=== PATIENT | female | born 1935 | race Caucasian/White ===

== ENCOUNTER 2021-07-07 15:11 | Inpatient (IN) ==
[2021-07-08] MEDS ORDERED: *HR* OxyCODONE Immed Rel 5 MG TABLET PO PRN ×2 (20:14→21:27)
[2021-07-08] MEDS ORDERED: Naloxone 0.4 MG/ML INJ IVP PRN (20:21)
[2021-07-08] MEDS ORDERED: Ondansetron 4 MG/2 ML VIAL IVP PRN (20:27)
[2021-07-08] MEDS: traZODone 50 MG TABLET PO SCH (22:00)
[2021-07-08] MEDS: methocarbamoL 500 MG TABLET PO SCH (22:00)
[2021-07-08] MEDS: Aspirin Enteric Coated 81 MG Tablet PO SCH (22:01)
[2021-07-09] MEDS: *HR* OxyCODONE Immed Rel 5 MG TABLET PO PRN ×3 (00:40→23:17)
[2021-07-09] MEDS: Ipratropium/Albuterol Neb 3 ML IH SCH ×4 (01:08→21:50)
[2021-07-09] MEDS: Budesonide/Formoterol 160/4.5 1 PUFF INH IH SCH ×3 (01:10→21:50)
[2021-07-09 06:05] LABS: Basophils % 0.5 %; Eosinophils # 0.3 K/mcL (0.0-0.6); Eosinophils % 4.5 %; Hematocrit 23.6 % (35.3-44.9); Hemoglobin 7.5 g/dL (11.5-15.4); Immature Granulocytes % 1.6 % (0-4); Lymphocytes # 1.7 K/mcL (0.6-4.6); Lymphocytes % 23.1 %; Mean Corpuscular HGB Conc 31.8 g/dL (31.6-35.5); Mean Corpuscular Hemoglobin 29.5 pg (28.0-33.3); Mean Corpuscular Volume 92.9 fL (83.0-100.0); Mean Platelet Volume 9.6 fL (9.4-12.4); Monocytes # 0.8 K/mcL (0.0-1.3); Monocytes % 10.5 %; Neutrophils # 4.4 K/mcL (1.6-8.9); Nucleated Red Blood Cells 0.7 /100 WBC (0); Platelet Count 317 K/mcL (140-400); Red Blood Count 2.54 M/mcL (3.82-4.97); Segmented Neutrophils % 59.8 %; White Blood Count 7.4 K/mcL (4.3-11.1)
[2021-07-09 06:16] LABS: BUN/Creatinine Ratio 19 (6-26); Blood Urea Nitrogen 16 mg/dL (8-23); Calcium 8.6 mg/dL (8.6-10.3); Carbon Dioxide 24 mEq/L (23-29); Chloride 106 mEq/L (98-107); Glucose 102 mg/dL (70-105); Osmolality,Calculated 281 (280-300); Potassium 3.9 mEq/L (3.5-5.1); Sodium 135 mEq/L (136-145); eGFR For African Americans > 60 (> 60); eGFR For Non-African Americans > 60 (> 60)
[2021-07-09] MEDS: amLODIPine 5 MG TABLET PO SCH (08:58)
[2021-07-09] MEDS: Aspirin Enteric Coated 81 MG Tablet PO SCH ×2 (08:58→20:31)
[2021-07-09] MEDS: Ascorbic Acid 500 MG TABLET PO SCH ×2 (08:58→16:18)
[2021-07-09] MEDS: Folic Acid 1 MG TABLET PO SCH (08:58)
[2021-07-09] MEDS: Multivit/Ca/Min/Fe/FA 1 TAB TABLET PO SCH (08:58)
[2021-07-09] MEDS: methocarbamoL 500 MG TABLET PO SCH (20:30)
[2021-07-09] MEDS: traZODone 50 MG TABLET PO SCH (20:31)
[2021-07-10 04:47] LABS: Hematocrit 24.6 % (35.3-44.9); Hemoglobin 7.7 g/dL (11.5-15.4); Mean Corpuscular HGB Conc 31.3 g/dL (31.6-35.5); Mean Corpuscular Hemoglobin 29.6 pg (28.0-33.3); Mean Corpuscular Volume 94.6 fL (83.0-100.0); Mean Platelet Volume 9.3 fL (9.4-12.4); Platelet Count 336 K/mcL (140-400); Red Cell Distribution Width 17.3 % (11.5-14.5); White Blood Count 8.6 K/mcL (4.3-11.1)
[2021-07-10] MEDS: Aspirin Enteric Coated 81 MG Tablet PO SCH ×2 (08:48→21:36)
[2021-07-10] MEDS: amLODIPine 5 MG TABLET PO SCH (08:48)
[2021-07-10] MEDS: Folic Acid 1 MG TABLET PO SCH (08:48)
[2021-07-10] MEDS: Multivit/Ca/Min/Fe/FA 1 TAB TABLET PO SCH (08:49)
[2021-07-10] MEDS: Ascorbic Acid 500 MG TABLET PO SCH ×2 (08:49→17:04)
[2021-07-10] MEDS: Budesonide/Formoterol 160/4.5 1 PUFF INH IH SCH ×2 (10:52→21:04)
[2021-07-10] MEDS: Ipratropium/Albuterol Neb 3 ML IH SCH ×3 (10:53→21:04)
[2021-07-10] MEDS: polyethylene glycoL 3350 17 GM POWD.PACK PO SCH (11:41)
[2021-07-10] MEDS: methocarbamoL 500 MG TABLET PO SCH (21:37)
[2021-07-10] MEDS: traZODone 50 MG TABLET PO SCH (21:37)
[2021-07-11 05:31] LABS: Hematocrit 26.6 % (35.3-44.9); Mean Corpuscular HGB Conc 30.1 g/dL (31.6-35.5); Mean Corpuscular Hemoglobin 29.7 pg (28.0-33.3); Mean Corpuscular Volume 98.9 fL (83.0-100.0); Mean Platelet Volume 9.5 fL (9.4-12.4); Platelet Count 361 K/mcL (140-400); Red Blood Count 2.69 M/mcL (3.82-4.97); Red Cell Distribution Width 18.5 % (11.5-14.5); White Blood Count 9.1 K/mcL (4.3-11.1)
[2021-07-11 05:40] LABS: BUN/Creatinine Ratio 15 (6-26); Blood Urea Nitrogen 13 mg/dL (8-23); Calcium 8.5 mg/dL (8.6-10.3); Carbon Dioxide 25 mEq/L (23-29); Chloride 105 mEq/L (98-107); Glucose 130 mg/dL (70-105); Osmolality,Calculated 286 (280-300); Potassium 4.4 mEq/L (3.5-5.1); Sodium 137 mEq/L (136-145); eGFR For African Americans > 60 (> 60); eGFR For Non-African Americans > 60 (> 60)
[2021-07-11] MEDS: *HR* OxyCODONE Immed Rel 5 MG TABLET PO PRN ×3 (05:51→22:12)
[2021-07-11] MEDS: amLODIPine 5 MG TABLET PO SCH (08:36)
[2021-07-11] MEDS: Aspirin Enteric Coated 81 MG Tablet PO SCH ×2 (08:36→20:20)
[2021-07-11] MEDS: polyethylene glycoL 3350 17 GM POWD.PACK PO SCH (08:36)
[2021-07-11] MEDS: Folic Acid 1 MG TABLET PO SCH (08:36)
[2021-07-11] MEDS: Ascorbic Acid 500 MG TABLET PO SCH ×2 (08:36→16:25)
[2021-07-11] MEDS: Multivit/Ca/Min/Fe/FA 1 TAB TABLET PO SCH (08:36)
[2021-07-11] MEDS: Budesonide/Formoterol 160/4.5 1 PUFF INH IH SCH ×2 (10:28→21:45)
[2021-07-11] MEDS: Ipratropium/Albuterol Neb 3 ML IH SCH ×3 (10:33→21:45)
[2021-07-11] MEDS: traZODone 50 MG TABLET PO SCH (20:20)
[2021-07-11] MEDS: methocarbamoL 500 MG TABLET PO SCH (20:20)
[2021-07-12] MEDS: Folic Acid 1 MG TABLET PO SCH (08:00)
[2021-07-12] MEDS: Aspirin Enteric Coated 81 MG Tablet PO SCH ×2 (08:01→20:20)
[2021-07-12] MEDS: amLODIPine 5 MG TABLET PO SCH (08:01)
[2021-07-12] MEDS: Multivit/Ca/Min/Fe/FA 1 TAB TABLET PO SCH (08:01)
[2021-07-12] MEDS: *HR* OxyCODONE Immed Rel 5 MG TABLET PO PRN ×2 (08:01→13:40)
[2021-07-12] MEDS: Ascorbic Acid 500 MG TABLET PO SCH ×2 (08:01→16:42)
[2021-07-12] MEDS: polyethylene glycoL 3350 17 GM POWD.PACK PO SCH (08:05)
[2021-07-12] MEDS: Ipratropium/Albuterol Neb 3 ML IH SCH ×3 (10:26→20:09)
[2021-07-12] MEDS: Budesonide/Formoterol 160/4.5 1 PUFF INH IH SCH ×2 (10:30→20:09)
[2021-07-12] MEDS: traZODone 50 MG TABLET PO SCH (20:20)
[2021-07-12] MEDS: methocarbamoL 500 MG TABLET PO SCH (20:21)
[2021-07-13 05:39] LABS: Basophils % 0.5 %; Eosinophils # 0.1 K/mcL (0.0-0.6); Eosinophils % 2.2 %; Hematocrit 26.7 % (35.3-44.9); Hemoglobin 8.3 g/dL (11.5-15.4); Immature Granulocytes % 1.4 % (0-4); Lymphocytes # 1.2 K/mcL (0.6-4.6); Lymphocytes % 18.4 %; Mean Corpuscular HGB Conc 31.1 g/dL (31.6-35.5); Mean Corpuscular Hemoglobin 30.7 pg (28.0-33.3); Mean Corpuscular Volume 98.9 fL (83.0-100.0); Mean Platelet Volume 9.3 fL (9.4-12.4); Monocytes # 0.9 K/mcL (0.0-1.3); Monocytes % 13.9 %; Neutrophils # 4.1 K/mcL (1.6-8.9); Nucleated Red Blood Cells 0.6 /100 WBC (0); Platelet Count 364 K/mcL (140-400); Red Cell Distribution Width 19.9 % (11.5-14.5); Segmented Neutrophils % 63.6 %; White Blood Count 6.4 K/mcL (4.3-11.1)
[2021-07-13 05:47] LABS: BUN/Creatinine Ratio 16 (6-26); Blood Urea Nitrogen 17 mg/dL (8-23); Calcium 8.5 mg/dL (8.6-10.3); Carbon Dioxide 27 mEq/L (23-29); Chloride 102 mEq/L (98-107); Glucose 97 mg/dL (70-105); Osmolality,Calculated 279 (280-300); Potassium 5.3 mEq/L (3.5-5.1); Sodium 134 mEq/L (136-145); eGFR For African Americans > 60 (> 60); eGFR For Non-African Americans 50 (> 60)
[2021-07-13] MEDS ORDERED: Menthol 1 EACH LOZENGE PO PRN (07:24)
[2021-07-13] MEDS: Budesonide/Formoterol 160/4.5 1 PUFF INH IH SCH (08:45)
[2021-07-13] MEDS ORDERED: Ipratropium 1 PUFF INHALER IH SCH (09:00)
[2021-07-13 09:07] LABS: Alanine Aminotransferase 7 Units/L (7-52); Alkaline Phosphatase 56 Units/L (34-104); Aspartate Amino Transferase 19 Units/L (13-39); Bilirubin,Direct 0.2 mg/dL (0.0-0.2); Bilirubin,Indirect 0.4 mg/dL (0.0-1.0); Bilirubin,Total 0.6 mg/dL (0.3-1.0); Globulin 3.1 g/dL (2.4-3.5); Total Protein 6.1 g/dL (6.4-8.9); Troponin I < 0.03 ng/mL (< 0.04)
[2021-07-13] MEDS ORDERED: Acetaminophen 650 MG RECTAL SUPP RC PRN (09:25)
[2021-07-13] MEDS: Ascorbic Acid 500 MG TABLET PO SCH (10:45)
[2021-07-13] MEDS: amLODIPine 5 MG TABLET PO SCH (10:45)
[2021-07-13] MEDS: Multivit/Ca/Min/Fe/FA 1 TAB TABLET PO SCH (10:45)
[2021-07-13] MEDS: Aspirin Enteric Coated 81 MG Tablet PO SCH (10:46)
[2021-07-13] MEDS: Folic Acid 1 MG TABLET PO SCH (10:46)
[2021-07-13] MEDS: *HR* OxyCODONE Immed Rel 5 MG TABLET PO PRN (10:46)
[2021-07-13] MEDS: polyethylene glycoL 3350 17 GM POWD.PACK PO SCH (10:46)
[2021-07-13 11:42] VITALS: BP 108/62; PULSE 73; RESP 18; TEMP 97.4; O2SAT 98
[2021-07-13] MEDS ORDERED: Remdesivir 200 MG in 0.9 % Sodium Chloride 100 ML IVPB ONE (12:00)
[2021-07-14] MEDS ORDERED: Remdesivir 100 MG in 0.9 % Sodium Chloride 100 ML IVPB SCH (12:00)
== END 2021-07-13 14:37 | disposition still patient (30) | DRG 559 ==
LOC: INPGRE 07-08 19:28
PROVIDERS: ADMIT Family Medicine; ATTEND Family Medicine

== ENCOUNTER 2021-07-13 14:30 | Inpatient (IN) ==
[2021-07-13] MEDS ORDERED: Naloxone 0.4 MG/ML INJ IVP PRN (14:58)
[2021-07-13] MEDS ORDERED: Ondansetron 4 MG/2 ML VIAL IVP PRN (14:59)
[2021-07-13] MEDS ORDERED: Tiotropium 10 INH DOSE IH SCH (15:00)
[2021-07-13] MEDS ORDERED: Menthol 1 EACH LOZENGE PO PRN (15:01)
[2021-07-13] MEDS ORDERED: Remdesivir 200 MG in 0.9 % Sodium Chloride 100 ML IVPB ONE (15:06)
[2021-07-13] MEDS: *HR* OxyCODONE Immed Rel 5 MG TABLET PO PRN (18:27)
[2021-07-13] MEDS: methocarbamoL 500 MG TABLET PO SCH (20:25)
[2021-07-13] MEDS: Ascorbic Acid 500 MG TABLET PO SCH (20:25)
[2021-07-13] MEDS: traZODone 50 MG TABLET PO SCH (20:25)
[2021-07-13] MEDS: Ipratropium 1 PUFF INHALER IH SCH (21:40)
[2021-07-13] MEDS: Budesonide/Formoterol 160/4.5 1 PUFF INH IH SCH (21:40)
[2021-07-14 01:00] LABS: Bilirubin,Urine Negative (Negative); Blood,Urine Negative (Negative); Clarity,Urine Clear (Clear); Color,Urine Yellow (Yellow); Glucose,Urine (UA) Normal (Normal); Ketones,Urine Negative (Negative); Leukocyte Esterase,Urine Negative (Negative); Nitrite,Urine Negative (Negative); PH,Urine 5.5 pH Units (5.0-8.0); Protein,Urine Trace mg/dL (Neg-Trace); Specific Gravity,Urine 1.025 (1.010-1.025); Urobilinogen,Urine Normal (Normal)
[2021-07-14] MEDS ORDERED: *HR* Enoxaparin 40 MG/0.4 ML SYRINGE SQ SCH (06:00)
[2021-07-14 06:34] LABS: Basophils % 0.2 %; Eosinophils % 0.4 %; Hemoglobin 7.8 g/dL (11.5-15.4); Immature Granulocytes % 0.9 % (0-4); Lymphocytes # 1.1 K/mcL (0.6-4.6); Lymphocytes % 19.6 %; Mean Corpuscular HGB Conc 31.2 g/dL (31.6-35.5); Mean Corpuscular Hemoglobin 30.2 pg (28.0-33.3); Mean Corpuscular Volume 96.9 fL (83.0-100.0); Mean Platelet Volume 9.5 fL (9.4-12.4); Monocytes # 0.7 K/mcL (0.0-1.3); Monocytes % 13.3 %; Neutrophils # 3.6 K/mcL (1.6-8.9); Platelet Count 351 K/mcL (140-400); Red Blood Count 2.58 M/mcL (3.82-4.97); Red Cell Distribution Width 19.9 % (11.5-14.5); Segmented Neutrophils % 65.6 %; White Blood Count 5.4 K/mcL (4.3-11.1)
[2021-07-14 06:46] LABS: BUN/Creatinine Ratio 18 (6-26); Blood Urea Nitrogen 16 mg/dL (8-23); Calcium 8.1 mg/dL (8.6-10.3); Carbon Dioxide 27 mEq/L (23-29); Chloride 100 mEq/L (98-107); Glucose 98 mg/dL (70-105); Osmolality,Calculated 277 (280-300); Potassium 4.1 mEq/L (3.5-5.1); Sodium 133 mEq/L (136-145); eGFR For African Americans > 60 (> 60); eGFR For Non-African Americans > 60 (> 60)
[2021-07-14 06:48] LABS: Albumin 2.9 g/dL (3.5-5.7); Albumin/Globulin Ratio 1.1 (1.1-2.2); Bilirubin,Direct 0.1 mg/dL (0.0-0.2); Bilirubin,Indirect 0.4 mg/dL (0.0-1.0); Bilirubin,Total 0.5 mg/dL (0.3-1.0); Globulin 2.7 g/dL (2.4-3.5); Total Protein 5.6 g/dL (6.4-8.9)
[2021-07-14] MEDS: Ipratropium 1 PUFF INHALER IH SCH ×3 (08:17→20:22)
[2021-07-14] MEDS: Budesonide/Formoterol 160/4.5 1 PUFF INH IH SCH ×2 (08:18→20:22)
[2021-07-14] MEDS: Ascorbic Acid 500 MG TABLET PO SCH ×2 (08:23→19:58)
[2021-07-14] MEDS: Multivit/Ca/Min/Fe/FA 1 TAB TABLET PO SCH (08:23)
[2021-07-14] MEDS: Folic Acid 1 MG TABLET PO SCH (08:24)
[2021-07-14] MEDS: amLODIPine 5 MG TABLET PO SCH (08:24)
[2021-07-14] MEDS: polyethylene glycoL 3350 17 GM POWD.PACK PO SCH (08:25)
[2021-07-14 09:59] LABS: VBG Ionized Calcium 1.18 mmol/L (1.15-1.35)
[2021-07-14] MEDS: *HR* OxyCODONE Immed Rel 5 MG TABLET PO PRN ×3 (10:50→22:08)
[2021-07-14 13:46] LABS: % Iron Saturation 15 % (15-50); Iron 38 mcg/dL (50-170); Transferrin 180 mg/dL (203-362)
[2021-07-14] MEDS: Remdesivir 100 MG in 0.9 % Sodium Chloride 100 ML IVPB SCH (17:04)
[2021-07-14] MEDS: traZODone 50 MG TABLET PO SCH (19:57)
[2021-07-14] MEDS: methocarbamoL 500 MG TABLET PO SCH (19:58)
[2021-07-14] MEDS: *HR* Enoxaparin 80 MG/0.8 ML SYRINGE SQ SCH (22:08)
[2021-07-15 06:16] LABS: Basophils % 0.2 %; Eosinophils % 0.6 %; Hematocrit 25.4 % (35.3-44.9); Hemoglobin 7.9 g/dL (11.5-15.4); Immature Granulocytes % 0.6 % (0-4); Lymphocytes # 1.4 K/mcL (0.6-4.6); Lymphocytes % 26.4 %; Mean Corpuscular HGB Conc 31.1 g/dL (31.6-35.5); Mean Corpuscular Hemoglobin 30.6 pg (28.0-33.3); Mean Corpuscular Volume 98.4 fL (83.0-100.0); Mean Platelet Volume 9.4 fL (9.4-12.4); Monocytes # 0.6 K/mcL (0.0-1.3); Monocytes % 11.6 %; Neutrophils # 3.2 K/mcL (1.6-8.9); Platelet Count 353 K/mcL (140-400); Red Blood Count 2.58 M/mcL (3.82-4.97); Red Cell Distribution Width 20.3 % (11.5-14.5); Segmented Neutrophils % 60.6 %; White Blood Count 5.3 K/mcL (4.3-11.1)
[2021-07-15 06:37] LABS: Albumin 2.9 g/dL (3.5-5.7); Bilirubin,Direct 0.1 mg/dL (0.0-0.2); Bilirubin,Indirect 0.4 mg/dL (0.0-1.0); Bilirubin,Total 0.5 mg/dL (0.3-1.0); Globulin 2.8 g/dL (2.4-3.5); Total Protein 5.7 g/dL (6.4-8.9)
[2021-07-15 06:38] LABS: BUN/Creatinine Ratio 17 (6-26); Blood Urea Nitrogen 15 mg/dL (8-23); Carbon Dioxide 27 mEq/L (23-29); Chloride 102 mEq/L (98-107); Glucose 93 mg/dL (70-105); Osmolality,Calculated 281 (280-300); Potassium 4.2 mEq/L (3.5-5.1); Sodium 135 mEq/L (136-145); eGFR For African Americans > 60 (> 60); eGFR For Non-African Americans 60 (> 60)
[2021-07-15] MEDS: Budesonide/Formoterol 160/4.5 1 PUFF INH IH SCH ×2 (08:02→20:02)
[2021-07-15] MEDS: Ipratropium 1 PUFF INHALER IH SCH ×3 (08:02→20:01)
[2021-07-15] MEDS: polyethylene glycoL 3350 17 GM POWD.PACK PO SCH (09:30)
[2021-07-15] MEDS: *HR* Enoxaparin 80 MG/0.8 ML SYRINGE SQ SCH ×2 (09:33→20:10)
[2021-07-15] MEDS: *HR* OxyCODONE Immed Rel 5 MG TABLET PO PRN ×2 (09:34→17:03)
[2021-07-15] MEDS: Folic Acid 1 MG TABLET PO SCH (09:34)
[2021-07-15] MEDS: Multivit/Ca/Min/Fe/FA 1 TAB TABLET PO SCH (09:35)
[2021-07-15] MEDS: amLODIPine 5 MG TABLET PO SCH (09:35)
[2021-07-15] MEDS: Ascorbic Acid 500 MG TABLET PO SCH ×2 (09:35→20:10)
[2021-07-15] MEDS: Remdesivir 100 MG in 0.9 % Sodium Chloride 100 ML IVPB SCH (17:02)
[2021-07-15] MEDS: traZODone 50 MG TABLET PO SCH (20:10)
[2021-07-15] MEDS: methocarbamoL 500 MG TABLET PO SCH (20:10)
[2021-07-16 06:23] LABS: Basophils % 0.2 %; Eosinophils % 0.3 %; Hematocrit 29.2 % (35.3-44.9); Hemoglobin 8.8 g/dL (11.5-15.4); Immature Granulocytes % 0.5 % (0-4); Lymphocytes # 1.5 K/mcL (0.6-4.6); Lymphocytes % 25.1 %; Mean Corpuscular HGB Conc 30.1 g/dL (31.6-35.5); Mean Corpuscular Hemoglobin 30.2 pg (28.0-33.3); Mean Corpuscular Volume 100.3 fL (83.0-100.0); Mean Platelet Volume 9.5 fL (9.4-12.4); Monocytes # 0.5 K/mcL (0.0-1.3); Monocytes % 8.8 %; Neutrophils # 3.9 K/mcL (1.6-8.9); Platelet Count 407 K/mcL (140-400); Red Blood Count 2.91 M/mcL (3.82-4.97); Red Cell Distribution Width 20.3 % (11.5-14.5); Segmented Neutrophils % 65.1 %
[2021-07-16 07:00] LABS: Albumin 3.2 g/dL (3.5-5.7); Bilirubin,Direct 0.1 mg/dL (0.0-0.2); Bilirubin,Indirect 0.4 mg/dL (0.0-1.0); Bilirubin,Total 0.5 mg/dL (0.3-1.0); Calcium 8.5 mg/dL (8.6-10.3); Globulin 3.1 g/dL (2.4-3.5); Total Protein 6.3 g/dL (6.4-8.9)
[2021-07-16] MEDS: Budesonide/Formoterol 160/4.5 1 PUFF INH IH SCH ×2 (08:08→21:22)
[2021-07-16] MEDS: Ipratropium 1 PUFF INHALER IH SCH ×3 (08:08→21:22)
[2021-07-16] MEDS: *HR* Enoxaparin 80 MG/0.8 ML SYRINGE SQ SCH ×2 (10:12→19:47)
[2021-07-16] MEDS: Folic Acid 1 MG TABLET PO SCH (10:16)
[2021-07-16] MEDS: amLODIPine 5 MG TABLET PO SCH (10:16)
[2021-07-16] MEDS: Multivit/Ca/Min/Fe/FA 1 TAB TABLET PO SCH (10:16)
[2021-07-16] MEDS: *HR* OxyCODONE Immed Rel 5 MG TABLET PO PRN ×3 (10:16→23:24)
[2021-07-16] MEDS: Ascorbic Acid 500 MG TABLET PO SCH ×2 (10:16→19:46)
[2021-07-16] MEDS: polyethylene glycoL 3350 17 GM POWD.PACK PO SCH (10:17)
[2021-07-16] MEDS: Remdesivir 100 MG in 0.9 % Sodium Chloride 100 ML IVPB SCH (16:54)
[2021-07-16] MEDS: methocarbamoL 500 MG TABLET PO SCH (19:46)
[2021-07-16] MEDS: traZODone 50 MG TABLET PO SCH (19:46)
[2021-07-17 06:11] LABS: Basophils % 0.2 %; Eosinophils % 0.5 %; Hematocrit 25.9 % (35.3-44.9); Hemoglobin 8.1 g/dL (11.5-15.4); Immature Granulocytes % 0.5 % (0-4); Lymphocytes # 1.8 K/mcL (0.6-4.6); Lymphocytes % 27.8 %; Mean Corpuscular HGB Conc 31.3 g/dL (31.6-35.5); Mean Corpuscular Hemoglobin 30.9 pg (28.0-33.3); Mean Corpuscular Volume 98.9 fL (83.0-100.0); Mean Platelet Volume 9.4 fL (9.4-12.4); Monocytes # 0.5 K/mcL (0.0-1.3); Monocytes % 7.9 %; Nucleated Red Blood Cells 0.3 /100 WBC (0); Platelet Count 383 K/mcL (140-400); Red Blood Count 2.62 M/mcL (3.82-4.97); Red Cell Distribution Width 20.2 % (11.5-14.5); Segmented Neutrophils % 63.1 %; White Blood Count 6.4 K/mcL (4.3-11.1)
[2021-07-17 06:33] LABS: Albumin 2.9 g/dL (3.5-5.7); Bilirubin,Direct 0.1 mg/dL (0.0-0.2); Bilirubin,Indirect 0.3 mg/dL (0.0-1.0); Bilirubin,Total 0.4 mg/dL (0.3-1.0); Globulin 2.8 g/dL (2.4-3.5); Total Protein 5.7 g/dL (6.4-8.9)
[2021-07-17 06:34] LABS: BUN/Creatinine Ratio 17 (6-26); Blood Urea Nitrogen 15 mg/dL (8-23); Calcium 7.9 mg/dL (8.6-10.3); Carbon Dioxide 26 mEq/L (23-29); Chloride 102 mEq/L (98-107); Glucose 90 mg/dL (70-105); Osmolality,Calculated 280 (280-300); Potassium 3.8 mEq/L (3.5-5.1); Sodium 135 mEq/L (136-145); eGFR For African Americans > 60 (> 60); eGFR For Non-African Americans > 60 (> 60)
[2021-07-17] MEDS: Budesonide/Formoterol 160/4.5 1 PUFF INH IH SCH ×2 (08:12→21:36)
[2021-07-17] MEDS: Ipratropium 1 PUFF INHALER IH SCH ×3 (08:12→21:37)
[2021-07-17] MEDS: *HR* Enoxaparin 80 MG/0.8 ML SYRINGE SQ SCH ×3 (09:04→21:50)
[2021-07-17] MEDS: *HR* OxyCODONE Immed Rel 5 MG TABLET PO PRN ×3 (09:08→22:02)
[2021-07-17] MEDS: Folic Acid 1 MG TABLET PO SCH (09:08)
[2021-07-17] MEDS: Multivit/Ca/Min/Fe/FA 1 TAB TABLET PO SCH (09:09)
[2021-07-17] MEDS: Ascorbic Acid 500 MG TABLET PO SCH ×2 (09:10→21:37)
[2021-07-17] MEDS: amLODIPine 5 MG TABLET PO SCH (09:10)
[2021-07-17] MEDS: polyethylene glycoL 3350 17 GM POWD.PACK PO SCH (09:11)
[2021-07-17] MEDS: Remdesivir 100 MG in 0.9 % Sodium Chloride 100 ML IVPB SCH (17:11)
[2021-07-17] MEDS: traZODone 50 MG TABLET PO SCH (21:37)
[2021-07-17] MEDS: methocarbamoL 500 MG TABLET PO SCH (21:37)
[2021-07-18 05:15] LABS: Albumin 2.9 g/dL (3.5-5.7); Albumin/Globulin Ratio 1.1 (1.1-2.2); Bilirubin,Direct 0.1 mg/dL (0.0-0.2); Bilirubin,Indirect 0.3 mg/dL (0.0-1.0); Bilirubin,Total 0.4 mg/dL (0.3-1.0); Globulin 2.7 g/dL (2.4-3.5); Total Protein 5.6 g/dL (6.4-8.9)
[2021-07-18 05:30] LABS: BUN/Creatinine Ratio 14 (6-26); Blood Urea Nitrogen 14 mg/dL (8-23); Calcium 8.1 mg/dL (8.6-10.3); Carbon Dioxide 27 mEq/L (23-29); Chloride 103 mEq/L (98-107); Glucose 96 mg/dL (70-105); Osmolality,Calculated 284 (280-300); Potassium 4.2 mEq/L (3.5-5.1); Sodium 137 mEq/L (136-145); eGFR For African Americans > 60 (> 60); eGFR For Non-African Americans 54 (> 60)
[2021-07-18] MEDS: Ipratropium 1 PUFF INHALER IH SCH ×3 (08:10→21:27)
[2021-07-18] MEDS: Budesonide/Formoterol 160/4.5 1 PUFF INH IH SCH ×2 (08:10→21:27)
[2021-07-18] MEDS: amLODIPine 5 MG TABLET PO SCH ×2 (08:11→08:18)
[2021-07-18] MEDS: Folic Acid 1 MG TABLET PO SCH (08:18)
[2021-07-18] MEDS: Multivit/Ca/Min/Fe/FA 1 TAB TABLET PO SCH (08:18)
[2021-07-18] MEDS: Ascorbic Acid 500 MG TABLET PO SCH ×2 (08:19→22:06)
[2021-07-18] MEDS: polyethylene glycoL 3350 17 GM POWD.PACK PO SCH (08:19)
[2021-07-18] MEDS: *HR* Enoxaparin 80 MG/0.8 ML SYRINGE SQ SCH ×2 (08:25→22:06)
[2021-07-18] MEDS: traZODone 50 MG TABLET PO SCH (22:05)
[2021-07-18] MEDS: methocarbamoL 500 MG TABLET PO SCH (22:06)
[2021-07-18] MEDS: *HR* OxyCODONE Immed Rel 5 MG TABLET PO PRN (22:07)
[2021-07-19 05:59] LABS: Basophils % 0.3 %; Eosinophils # 0.1 K/mcL (0.0-0.6); Hematocrit 29.2 % (35.3-44.9); Hemoglobin 8.9 g/dL (11.5-15.4); Immature Granulocytes % 0.7 % (0-4); Lymphocytes # 2.1 K/mcL (0.6-4.6); Lymphocytes % 28.7 %; Mean Corpuscular HGB Conc 30.5 g/dL (31.6-35.5); Mean Corpuscular Hemoglobin 30.3 pg (28.0-33.3); Mean Corpuscular Volume 99.3 fL (83.0-100.0); Mean Platelet Volume 9.3 fL (9.4-12.4); Monocytes # 0.6 K/mcL (0.0-1.3); Monocytes % 8.5 %; Neutrophils # 4.3 K/mcL (1.6-8.9); Nucleated Red Blood Cells 0.3 /100 WBC (0); Platelet Count 418 K/mcL (140-400); Red Blood Count 2.94 M/mcL (3.82-4.97); Red Cell Distribution Width 20.9 % (11.5-14.5); Segmented Neutrophils % 59.8 %; White Blood Count 7.1 K/mcL (4.3-11.1)
[2021-07-19 06:18] LABS: Alanine Aminotransferase 17 Units/L (7-52); Alkaline Phosphatase 60 Units/L (34-104); Aspartate Amino Transferase 21 Units/L (13-39); BUN/Creatinine Ratio 14 (6-26); Bilirubin,Direct 0.1 mg/dL (0.0-0.2); Bilirubin,Indirect 0.3 mg/dL (0.0-1.0); Bilirubin,Total 0.4 mg/dL (0.3-1.0); Blood Urea Nitrogen 14 mg/dL (8-23); Calcium 8.3 mg/dL (8.6-10.3); Carbon Dioxide 29 mEq/L (23-29); Chloride 104 mEq/L (98-107); Globulin 2.9 g/dL (2.4-3.5); Glucose 100 mg/dL (70-105); Osmolality,Calculated 285 (280-300); Potassium 4.2 mEq/L (3.5-5.1); Sodium 137 mEq/L (136-145); Total Protein 5.9 g/dL (6.4-8.9); eGFR For African Americans > 60 (> 60); eGFR For Non-African Americans 51 (> 60)
[2021-07-19] MEDS: Folic Acid 1 MG TABLET PO SCH (07:56)
[2021-07-19] MEDS: Multivit/Ca/Min/Fe/FA 1 TAB TABLET PO SCH (07:56)
[2021-07-19] MEDS: *HR* OxyCODONE Immed Rel 5 MG TABLET PO PRN ×3 (07:56→21:01)
[2021-07-19] MEDS: *HR* Enoxaparin 80 MG/0.8 ML SYRINGE SQ SCH ×2 (07:57→21:00)
[2021-07-19] MEDS: amLODIPine 5 MG TABLET PO SCH (07:58)
[2021-07-19] MEDS: Ascorbic Acid 500 MG TABLET PO SCH ×2 (07:58→21:00)
[2021-07-19] MEDS: polyethylene glycoL 3350 17 GM POWD.PACK PO SCH ×2 (07:58→11:18)
[2021-07-19] MEDS: Budesonide/Formoterol 160/4.5 1 PUFF INH IH SCH ×2 (09:51→22:24)
[2021-07-19] MEDS: Ipratropium 1 PUFF INHALER IH SCH ×3 (09:51→22:23)
[2021-07-19] MEDS: methocarbamoL 500 MG TABLET PO SCH (21:00)
[2021-07-19] MEDS: traZODone 50 MG TABLET PO SCH (21:00)
[2021-07-20] MEDS: *HR* Enoxaparin 80 MG/0.8 ML SYRINGE SQ SCH ×2 (09:10→19:52)
[2021-07-20] MEDS: Ascorbic Acid 500 MG TABLET PO SCH ×2 (09:11→19:52)
[2021-07-20] MEDS: amLODIPine 5 MG TABLET PO SCH (09:11)
[2021-07-20] MEDS: Multivit/Ca/Min/Fe/FA 1 TAB TABLET PO SCH (09:11)
[2021-07-20] MEDS: Folic Acid 1 MG TABLET PO SCH (09:11)
[2021-07-20] MEDS: polyethylene glycoL 3350 17 GM POWD.PACK PO SCH (09:11)
[2021-07-20] MEDS: Ipratropium 1 PUFF INHALER IH SCH ×3 (09:50→20:35)
[2021-07-20] MEDS: Budesonide/Formoterol 160/4.5 1 PUFF INH IH SCH ×2 (09:51→20:35)
[2021-07-20] MEDS: *HR* OxyCODONE Immed Rel 5 MG TABLET PO PRN (17:33)
[2021-07-20] MEDS: traZODone 50 MG TABLET PO SCH (19:52)
[2021-07-20] MEDS: methocarbamoL 500 MG TABLET PO SCH (19:52)
[2021-07-21 06:03] LABS: Basophils % 0.4 %; Eosinophils # 0.1 K/mcL (0.0-0.6); Eosinophils % 0.9 %; Hematocrit 30.3 % (35.3-44.9); Hemoglobin 9.4 g/dL (11.5-15.4); Immature Granulocytes % 0.5 % (0-4); Lymphocytes # 1.2 K/mcL (0.6-4.6); Lymphocytes % 22.1 %; Mean Corpuscular Hemoglobin 30.6 pg (28.0-33.3); Mean Corpuscular Volume 98.7 fL (83.0-100.0); Mean Platelet Volume 8.7 fL (9.4-12.4); Monocytes # 0.6 K/mcL (0.0-1.3); Monocytes % 11.3 %; Neutrophils # 3.6 K/mcL (1.6-8.9); Nucleated Red Blood Cells 0.4 /100 WBC (0); Platelet Count 411 K/mcL (140-400); Red Blood Count 3.07 M/mcL (3.82-4.97); Red Cell Distribution Width 20.6 % (11.5-14.5); Segmented Neutrophils % 64.8 %; White Blood Count 5.6 K/mcL (4.3-11.1)
[2021-07-21 06:19] LABS: BUN/Creatinine Ratio 14 (6-26); Blood Urea Nitrogen 13 mg/dL (8-23); Calcium 8.9 mg/dL (8.6-10.3); Carbon Dioxide 26 mEq/L (23-29); Chloride 102 mEq/L (98-107); Glucose 97 mg/dL (70-105); Osmolality,Calculated 280 (280-300); Potassium 3.9 mEq/L (3.5-5.1); Sodium 135 mEq/L (136-145); eGFR For African Americans > 60 (> 60); eGFR For Non-African Americans 59 (> 60)
[2021-07-21] MEDS: *HR* OxyCODONE Immed Rel 5 MG TABLET PO PRN (07:56)
[2021-07-21] MEDS: Multivit/Ca/Min/Fe/FA 1 TAB TABLET PO SCH (07:57)
[2021-07-21] MEDS: Folic Acid 1 MG TABLET PO SCH (07:57)
[2021-07-21] MEDS: Ascorbic Acid 500 MG TABLET PO SCH ×2 (07:57→20:11)
[2021-07-21] MEDS: amLODIPine 5 MG TABLET PO SCH (07:57)
[2021-07-21] MEDS: *HR* Enoxaparin 80 MG/0.8 ML SYRINGE SQ SCH ×2 (07:59→20:10)
[2021-07-21] MEDS: polyethylene glycoL 3350 17 GM POWD.PACK PO SCH (07:59)
[2021-07-21] MEDS: Ipratropium 1 PUFF INHALER IH SCH ×3 (10:17→21:49)
[2021-07-21] MEDS: Budesonide/Formoterol 160/4.5 1 PUFF INH IH SCH ×2 (10:17→21:50)
[2021-07-21] MEDS ORDERED: Iopamidol - 370 500 ML MLS IVP ONE (10:36)
[2021-07-21] MEDS: Furosemide 40 MG/4 ML VIAL IVP SCH (11:54)
[2021-07-21 12:33] LABS: Troponin I < 0.03 ng/mL (< 0.04)
[2021-07-21] MEDS: traZODone 50 MG TABLET PO SCH (20:11)
[2021-07-21] MEDS: methocarbamoL 500 MG TABLET PO SCH (20:11)
[2021-07-22 07:23] LABS: Basophils % 0.4 %; Eosinophils # 0.1 K/mcL (0.0-0.6); Eosinophils % 1.4 %; Hematocrit 29.1 % (35.3-44.9); Immature Granulocytes % 0.4 % (0-4); Lymphocytes # 1.3 K/mcL (0.6-4.6); Lymphocytes % 27.3 %; Mean Corpuscular HGB Conc 30.9 g/dL (31.6-35.5); Mean Corpuscular Hemoglobin 30.7 pg (28.0-33.3); Mean Corpuscular Volume 99.3 fL (83.0-100.0); Mean Platelet Volume 9.6 fL (9.4-12.4); Monocytes # 0.6 K/mcL (0.0-1.3); Monocytes % 12.2 %; Neutrophils # 2.9 K/mcL (1.6-8.9); Platelet Count 426 K/mcL (140-400); Red Blood Count 2.93 M/mcL (3.82-4.97); Red Cell Distribution Width 19.9 % (11.5-14.5); Segmented Neutrophils % 58.3 %; White Blood Count 4.9 K/mcL (4.3-11.1)
[2021-07-22 07:39] LABS: BUN/Creatinine Ratio 14 (6-26); Blood Urea Nitrogen 14 mg/dL (8-23); Calcium 8.8 mg/dL (8.6-10.3); Carbon Dioxide 28 mEq/L (23-29); Chloride 98 mEq/L (98-107); Glucose 92 mg/dL (70-105); Osmolality,Calculated 278 (280-300); Potassium 3.6 mEq/L (3.5-5.1); Sodium 134 mEq/L (136-145); eGFR For African Americans > 60 (> 60); eGFR For Non-African Americans 52 (> 60)
[2021-07-22] MEDS: amLODIPine 5 MG TABLET PO SCH (09:22)
[2021-07-22] MEDS: Folic Acid 1 MG TABLET PO SCH (09:22)
[2021-07-22] MEDS: Ascorbic Acid 500 MG TABLET PO SCH ×2 (09:22→20:01)
[2021-07-22] MEDS: Multivit/Ca/Min/Fe/FA 1 TAB TABLET PO SCH (09:23)
[2021-07-22] MEDS: Furosemide 40 MG/4 ML VIAL IVP SCH (09:23)
[2021-07-22] MEDS: polyethylene glycoL 3350 17 GM POWD.PACK PO SCH (09:24)
[2021-07-22] MEDS: *HR* Enoxaparin 80 MG/0.8 ML SYRINGE SQ SCH ×2 (09:25→20:01)
[2021-07-22] MEDS: Budesonide/Formoterol 160/4.5 1 PUFF INH IH SCH ×2 (09:26→20:30)
[2021-07-22] MEDS: Ipratropium 1 PUFF INHALER IH SCH ×3 (09:27→20:30)
[2021-07-22 19:43] LABS: C-Reactive Protein 14 mg/L (Less than 10)
[2021-07-22] MEDS: methocarbamoL 500 MG TABLET PO SCH (20:01)
[2021-07-22] MEDS: traZODone 50 MG TABLET PO SCH (20:01)
[2021-07-23] MEDS: amLODIPine 5 MG TABLET PO SCH (05:08)
[2021-07-23] MEDS: *HR* Enoxaparin 80 MG/0.8 ML SYRINGE SQ SCH ×2 (09:08→19:59)
[2021-07-23] MEDS: Furosemide 40 MG/4 ML VIAL IVP SCH (09:08)
[2021-07-23] MEDS: Ascorbic Acid 500 MG TABLET PO SCH ×2 (09:09→19:59)
[2021-07-23] MEDS: Folic Acid 1 MG TABLET PO SCH (09:09)
[2021-07-23] MEDS: polyethylene glycoL 3350 17 GM POWD.PACK PO SCH (09:10)
[2021-07-23] MEDS: Multivit/Ca/Min/Fe/FA 1 TAB TABLET PO SCH (09:10)
[2021-07-23] MEDS: Budesonide/Formoterol 160/4.5 1 PUFF INH IH SCH ×2 (10:07→20:25)
[2021-07-23] MEDS: Ipratropium 1 PUFF INHALER IH SCH ×3 (10:07→20:25)
[2021-07-23] MEDS: methocarbamoL 500 MG TABLET PO SCH (19:59)
[2021-07-23] MEDS: traZODone 50 MG TABLET PO SCH (20:00)
[2021-07-24] MEDS: Folic Acid 1 MG TABLET PO SCH (09:06)
[2021-07-24] MEDS: *HR* Enoxaparin 80 MG/0.8 ML SYRINGE SQ SCH ×2 (09:06→19:49)
[2021-07-24] MEDS: Multivit/Ca/Min/Fe/FA 1 TAB TABLET PO SCH (09:06)
[2021-07-24] MEDS: Ascorbic Acid 500 MG TABLET PO SCH ×2 (09:07→19:49)
[2021-07-24] MEDS: polyethylene glycoL 3350 17 GM POWD.PACK PO SCH (09:07)
[2021-07-24] MEDS: amLODIPine 5 MG TABLET PO SCH (09:07)
[2021-07-24] MEDS: Ipratropium 1 PUFF INHALER IH SCH ×3 (10:33→20:48)
[2021-07-24] MEDS: Budesonide/Formoterol 160/4.5 1 PUFF INH IH SCH ×2 (10:34→20:47)
[2021-07-24 14:51] LABS: Basophils % 0.4 %; Eosinophils # 0.2 K/mcL (0.0-0.6); Eosinophils % 2.3 %; Hematocrit 31.9 % (35.3-44.9); Hemoglobin 9.8 g/dL (11.5-15.4); Immature Granulocytes % 0.4 % (0-4); Lymphocytes # 1.3 K/mcL (0.6-4.6); Lymphocytes % 18.2 %; Mean Corpuscular HGB Conc 30.7 g/dL (31.6-35.5); Mean Corpuscular Hemoglobin 30.7 pg (28.0-33.3); Mean Platelet Volume 8.9 fL (9.4-12.4); Monocytes # 0.7 K/mcL (0.0-1.3); Monocytes % 9.6 %; Platelet Count 374 K/mcL (140-400); Red Blood Count 3.19 M/mcL (3.82-4.97); Red Cell Distribution Width 19.9 % (11.5-14.5); Segmented Neutrophils % 69.1 %; White Blood Count 7.3 K/mcL (4.3-11.1)
[2021-07-24 15:04] LABS: BUN/Creatinine Ratio 14 (6-26); Blood Urea Nitrogen 13 mg/dL (8-23); Calcium 8.8 mg/dL (8.6-10.3); Carbon Dioxide 27 mEq/L (23-29); Chloride 101 mEq/L (98-107); Glucose 113 mg/dL (70-105); Osmolality,Calculated 283 (280-300); Potassium 3.8 mEq/L (3.5-5.1); Sodium 136 mEq/L (136-145); eGFR For African Americans > 60 (> 60); eGFR For Non-African Americans 56 (> 60)
[2021-07-24] MEDS: traZODone 50 MG TABLET PO SCH (19:49)
[2021-07-24] MEDS: methocarbamoL 500 MG TABLET PO SCH (19:49)
[2021-07-25 09:35] LABS: Basophils % 0.3 %; Eosinophils # 0.3 K/mcL (0.0-0.6); Eosinophils % 2.7 %; Hemoglobin 10.7 g/dL (11.5-15.4); Immature Granulocytes % 0.5 % (0-4); Lymphocytes # 1.1 K/mcL (0.6-4.6); Lymphocytes % 12.2 %; Mean Corpuscular HGB Conc 30.6 g/dL (31.6-35.5); Mean Corpuscular Hemoglobin 31.1 pg (28.0-33.3); Mean Corpuscular Volume 101.7 fL (83.0-100.0); Mean Platelet Volume 9.2 fL (9.4-12.4); Monocytes # 0.6 K/mcL (0.0-1.3); Monocytes % 6.9 %; Neutrophils # 7.1 K/mcL (1.6-8.9); Platelet Count 416 K/mcL (140-400); Red Blood Count 3.44 M/mcL (3.82-4.97); Red Cell Distribution Width 19.4 % (11.5-14.5); Segmented Neutrophils % 77.4 %; White Blood Count 9.1 K/mcL (4.3-11.1)
[2021-07-25] MEDS: Ascorbic Acid 500 MG TABLET PO SCH ×2 (10:01→21:13)
[2021-07-25] MEDS: Multivit/Ca/Min/Fe/FA 1 TAB TABLET PO SCH (10:01)
[2021-07-25] MEDS: Folic Acid 1 MG TABLET PO SCH (10:01)
[2021-07-25] MEDS: amLODIPine 5 MG TABLET PO SCH (10:01)
[2021-07-25] MEDS: polyethylene glycoL 3350 17 GM POWD.PACK PO SCH (10:02)
[2021-07-25] MEDS: *HR* Enoxaparin 80 MG/0.8 ML SYRINGE SQ SCH (10:02)
[2021-07-25] MEDS: Ipratropium 1 PUFF INHALER IH SCH ×3 (10:05→21:35)
[2021-07-25] MEDS: Budesonide/Formoterol 160/4.5 1 PUFF INH IH SCH ×2 (10:06→21:35)
[2021-07-25 10:10] LABS: BUN/Creatinine Ratio 11 (6-26); Blood Urea Nitrogen 11 mg/dL (8-23); Calcium 9.3 mg/dL (8.6-10.3); Carbon Dioxide 28 mEq/L (23-29); Chloride 99 mEq/L (98-107); Glucose 96 mg/dL (70-105); Osmolality,Calculated 281 (280-300); Potassium 3.4 mEq/L (3.5-5.1); Sodium 136 mEq/L (136-145); eGFR For African Americans > 60 (> 60); eGFR For Non-African Americans 54 (> 60)
[2021-07-25] MEDS: Apixaban 5 MG TABLET PO SCH (21:12)
[2021-07-25] MEDS: traZODone 50 MG TABLET PO SCH (21:13)
[2021-07-25] MEDS: methocarbamoL 500 MG TABLET PO SCH (21:13)
[2021-07-26 06:03] LABS: Basophils % 0.5 %; Eosinophils # 0.2 K/mcL (0.0-0.6); Eosinophils % 2.6 %; Hematocrit 31.6 % (35.3-44.9); Immature Granulocytes % 0.5 % (0-4); Lymphocytes % 15.7 %; Mean Corpuscular HGB Conc 31.6 g/dL (31.6-35.5); Mean Corpuscular Hemoglobin 31.4 pg (28.0-33.3); Mean Corpuscular Volume 99.4 fL (83.0-100.0); Mean Platelet Volume 8.9 fL (9.4-12.4); Monocytes # 0.7 K/mcL (0.0-1.3); Monocytes % 10.8 %; Neutrophils # 4.7 K/mcL (1.6-8.9); Platelet Count 351 K/mcL (140-400); Red Blood Count 3.18 M/mcL (3.82-4.97); Red Cell Distribution Width 18.8 % (11.5-14.5); Segmented Neutrophils % 69.9 %; White Blood Count 6.6 K/mcL (4.3-11.1)
[2021-07-26 06:53] LABS: BUN/Creatinine Ratio 14 (6-26); Blood Urea Nitrogen 12 mg/dL (8-23); Calcium 8.8 mg/dL (8.6-10.3); Carbon Dioxide 26 mEq/L (23-29); Chloride 105 mEq/L (98-107); Glucose 108 mg/dL (70-105); Osmolality,Calculated 284 (280-300); Potassium 4.3 mEq/L (3.5-5.1); Sodium 137 mEq/L (136-145); eGFR For African Americans > 60 (> 60); eGFR For Non-African Americans > 60 (> 60)
[2021-07-26] MEDS: Ascorbic Acid 500 MG TABLET PO SCH ×2 (08:40→20:14)
[2021-07-26] MEDS: amLODIPine 5 MG TABLET PO SCH (08:40)
[2021-07-26] MEDS: Apixaban 5 MG TABLET PO SCH ×2 (08:40→20:13)
[2021-07-26] MEDS: Folic Acid 1 MG TABLET PO SCH (08:40)
[2021-07-26] MEDS: Multivit/Ca/Min/Fe/FA 1 TAB TABLET PO SCH (08:41)
[2021-07-26] MEDS: polyethylene glycoL 3350 17 GM POWD.PACK PO SCH (08:41)
[2021-07-26] MEDS: Ipratropium 1 PUFF INHALER IH SCH ×3 (09:34→21:38)
[2021-07-26] MEDS: Budesonide/Formoterol 160/4.5 1 PUFF INH IH SCH ×2 (09:34→21:38)
[2021-07-26 12:27] LABS: Bilirubin,Urine Negative (Negative); Blood,Urine Negative (Negative); Clarity,Urine Clear (Clear); Color,Urine Yellow (Yellow); Glucose,Urine (UA) Normal (Normal); Ketones,Urine Negative (Negative); Leukocyte Esterase,Urine Trace (Negative); Nitrite,Urine Positive (Negative); Protein,Urine Negative (Neg-Trace); Urobilinogen,Urine Normal (Normal)
[2021-07-26 12:33] LABS: Bacteria,Urine Many per hpf (None-Few); RBC,Urine 0-3 per hpf (0-3)
[2021-07-26] MEDS: cefTRIAXone 1,000 MG in 0.9 % Sodium Chloride Mini Bag 100 ML IVP SCH (14:04)
[2021-07-26] MEDS: traZODone 50 MG TABLET PO SCH (20:13)
[2021-07-26] MEDS: methocarbamoL 500 MG TABLET PO SCH (20:14)
[2021-07-27] MEDS: Ipratropium 1 PUFF INHALER IH SCH ×3 (07:53→20:06)
[2021-07-27] MEDS: Budesonide/Formoterol 160/4.5 1 PUFF INH IH SCH ×2 (07:54→20:06)
[2021-07-27 08:59] LABS: Basophils % 0.3 %; Eosinophils # 0.2 K/mcL (0.0-0.6); Eosinophils % 3.2 %; Hematocrit 31.2 % (35.3-44.9); Hemoglobin 9.8 g/dL (11.5-15.4); Immature Granulocytes % 0.4 % (0-4); Lymphocytes % 13.8 %; Mean Corpuscular HGB Conc 31.4 g/dL (31.6-35.5); Mean Corpuscular Hemoglobin 31.1 pg (28.0-33.3); Monocytes # 0.7 K/mcL (0.0-1.3); Monocytes % 9.3 %; Neutrophils # 5.5 K/mcL (1.6-8.9); Platelet Count 338 K/mcL (140-400); Red Blood Count 3.15 M/mcL (3.82-4.97); Red Cell Distribution Width 18.4 % (11.5-14.5); White Blood Count 7.5 K/mcL (4.3-11.1)
[2021-07-27 09:35] LABS: Albumin 3.1 g/dL (3.5-5.7); Albumin/Globulin Ratio 1.1 (1.1-2.2); Bilirubin,Direct 0.1 mg/dL (0.0-0.2); Bilirubin,Indirect 0.3 mg/dL (0.0-1.0); Bilirubin,Total 0.4 mg/dL (0.3-1.0); Globulin 2.9 g/dL (2.4-3.5)
[2021-07-27 09:37] LABS: Calcium 10.3 mg/dL (8.6-10.3); Potassium 4.1 mEq/L (3.5-5.1)
[2021-07-27] MEDS: amLODIPine 5 MG TABLET PO SCH (09:43)
[2021-07-27] MEDS: Apixaban 5 MG TABLET PO SCH ×2 (09:43→20:06)
[2021-07-27] MEDS: Multivit/Ca/Min/Fe/FA 1 TAB TABLET PO SCH (09:43)
[2021-07-27] MEDS: Folic Acid 1 MG TABLET PO SCH (09:43)
[2021-07-27] MEDS: cefTRIAXone 1,000 MG in 0.9 % Sodium Chloride Mini Bag 100 ML IVP SCH (09:44)
[2021-07-27] MEDS: polyethylene glycoL 3350 17 GM POWD.PACK PO SCH (09:44)
[2021-07-27] MEDS: Ascorbic Acid 500 MG TABLET PO SCH ×2 (09:44→20:05)
[2021-07-27 10:09] LABS: Thyroid Stimulating Hormone 5.271 mcIU/mL (0.340-5.600)
[2021-07-27] MEDS: traZODone 50 MG TABLET PO SCH (20:05)
[2021-07-27] MEDS: methocarbamoL 500 MG TABLET PO SCH (20:06)
[2021-07-28 06:39] VITALS: BP 137/68; PULSE 60; TEMP 98.6
[2021-07-28] MEDS: Budesonide/Formoterol 160/4.5 1 PUFF INH IH SCH (08:00)
[2021-07-28] MEDS: Ipratropium 1 PUFF INHALER IH SCH (08:00)
[2021-07-28] MEDS: cefTRIAXone 1,000 MG in 0.9 % Sodium Chloride Mini Bag 100 ML IVP SCH (08:01)
[2021-07-28 08:02] VITALS: RESP 17; O2SAT 98
[2021-07-28] MEDS: Ascorbic Acid 500 MG TABLET PO SCH (08:02)
[2021-07-28] MEDS: Apixaban 5 MG TABLET PO SCH (08:02)
[2021-07-28] MEDS: Folic Acid 1 MG TABLET PO SCH (08:02)
[2021-07-28] MEDS: amLODIPine 5 MG TABLET PO SCH (08:02)
[2021-07-28] MEDS: Multivit/Ca/Min/Fe/FA 1 TAB TABLET PO SCH (08:02)
[2021-07-28] MEDS: polyethylene glycoL 3350 17 GM POWD.PACK PO SCH (08:03)
[2021-07-28 08:06] LABS: BUN/Creatinine Ratio 14 (6-26); Blood Urea Nitrogen 13 mg/dL (8-23); Calcium 9.3 mg/dL (8.6-10.3); Carbon Dioxide 24 mEq/L (23-29); Chloride 103 mEq/L (98-107); Glucose 112 mg/dL (70-105); Osmolality,Calculated 283 (280-300); Potassium 4.2 mEq/L (3.5-5.1); Sodium 136 mEq/L (136-145); eGFR For African Americans > 60 (> 60); eGFR For Non-African Americans 59 (> 60)
== END 2021-07-28 15:37 | disposition home health service (06) ==
LOC: INPGRE
PROVIDERS: ADMIT Family Medicine; ATTEND Family Medicine